=== PATIENT | male | born 1975 | race Caucasian/White ===

== ENCOUNTER 2018-11-12 22:35 | Inpatient (IN) | payer BC ==
[2018-11-12] MEDS ORDERED: ALBUTEROL NEBULIZED 2.5 MG/3 ML INHALATION PRN (23:12)
[2018-11-12] MEDS ORDERED: PNEUMONIA PROTOCOL UTILIZED 1 EACH MISC PO PRN (23:12)
[2018-11-12] MEDS ORDERED: HYDROcodone/APAP 5-325MG 1 EACH TAB PO PRN (23:14)
--- NOTE | 2018-11-12 23:24 | ED ---
SOB HPI - General Chief Complaint: Shortness of Breath Stated Complaint: MO Time Seen by Provider: 11/12/18 22:58 Source: patient, EMS Mode of arrival: EMS Limitations: no limitations - History of Present Illness Initial Comments: This patient is a 43-year-old man who is transferred here from [facility] to be admitted for pneumonia. The patient states that his symptoms started on Monday with cough that is productive of some yellowish sputum. He over the past 2 days has had some intermittent fever. Today he states he was feeling much worse. He is having bilateral rib pains with the cough. He states that he is feeling short of breath. He went to the other hospitals walk-in clinic and was found to have pulse ox readings from 85-88 on room air. For that reason they transferred him here. The patient states that he is not feeling short of breath with the nasal cannula oxygen. MD Complaint: shortness of breath, cough, chest pain Onset/Timin -: days(s) Severity: moderate Quality: aching Consistency: constant Improves With: oxygen Worsens With: coughing Associated Symptoms: fever, cough, sputum production - Related Data Home Oxygen Therapy: No Home Medications Medication Instructions Recorded Confirmed Haloperidol [Haldol] 0.5 mg PO BID 11/11/14 11/11/14 Loratadine [Alavert] 10 mg PO HS PRN 11/11/14 11/11/14 Magnesium 200 mg PO TID 11/11/14 11/11/14 Multivitamin [Men's Multi-Vitamin] 1 each PO HS 11/11/14 11/11/14 [place]-3 Fatty Acids/Fish Oil [Fish 1 cap PO BID 11/11/14 11/11/14 Oil 1,000 mg Softgel] Venlafaxine HCl [Effexor] 75 mg PO BID@1200,2200 11/11/14 11/11/14 Venlafaxine HCl [Effexor] 150 mg PO DAILY@0900 11/11/14 11/11/14 traZODone HCL [Desyrel] 50 mg PO HS 11/11/14 11/11/14 Divalproex [Depakote] 500 mg PO TID 11/12/14 11/12/14 Previous Rx's Medication Instructions Recorded Amoxic-Pot Clav 875-125Mg 1 each PO Q12HR #14 tablet 11/13/14 [Augmentin Xr 875125] HYDROcodone/APAP 5-325MG [Lyles 5] 1 - 2 each PO Q6HR PRN #30 tab 11/13/14 Psyllium Husk (with Sugar) 368 gm PO DAILY powder 11/13/14 [Metamucil Powder] Allergies Allergy/AdvReac Type Severity Reaction Status Date / Time clarithromycin [From Biaxin] Allergy Unknown Verified 11/12/18 22:58 Review of Systems ROS Statement: Those systems with pertinent positive or pertinent negative responses have been documented in the HPI. ROS Other: All systems not noted in ROS Statement are negative. Constitutional: Reports: fever, chills ENT: Reports: congestion Respiratory: Reports: cough, dyspnea, wheezes. Denies: hemoptysis Cardiovascular: Reports: chest pain (Rib pains with cough). Denies: palpitati ons, orthopnea, edema, syncope Gastrointestinal: Denies: abdominal pain, nausea, vomiting, diarrhea Genitourinary: Denies: dysuria, hematuria Musculoskeletal: Denies: back pain Skin: Denies: rash Neurological: Denies: headache, weakness, numbness Past Medical History Past Medical History: No Reported History, Asthma, Diabetes Mellitus, Hyperlipidemia, Hypertension History of Any Multi-Drug Resistant Organisms: None Reported Past Surgical History: Adenoidectomy, Tonsillectomy Additional Past Surgical History / Comment(s): MYRINGOTOMY Past Anesthesia/Blood Transfusion Reactions: No Reported Reaction Past Psychological History: Anxiety, Bipolar, Depression Smoking Status: Current every day smoker Past Alcohol Use History: None Reported Past Drug Use History: None Reported - Past Family History Father Family Medical History: Cancer Mother Family Medical History: Diabetes Mellitus General Exam Limitations: no limitations General appearance: alert, in no apparent distress Head exam: Present: atraumatic, normocephalic Eye exam: Present: normal appearance. Absent: scleral icterus, conjunctival injection Neck exam: Present: normal inspection. Absent: meningismus Respiratory exam: Present: rales (Bilateral), chest wall tenderness. Absent: respiratory distress, wheezes, rhonchi, stridor, accessory muscle use, decreased breath sounds, prolonged expiratory Cardiovascular Exam: Present: regular rate, normal rhythm, normal heart sounds. Absent: systolic murmur, diastolic murmur, rubs, gallop GI/Abdominal exam: Present: soft. Absent: distended, tenderness, guarding, rebound, rigid, mass Extremities exam: Present: normal inspection, normal capillary refill. Absent: pedal edema, calf tenderness Back exam: Present: normal inspection. Absent: CVA tenderness (R), CVA tenderness (L) Neurological exam: Present: alert Skin exam: Present: warm, intact, normal color, diaphoretic. Absent: rash Course Vital Signs 11/12/18 11/12/18 22:36 22:43 Temperature 98.6 F Pulse Rate 78 Respiratory 18 18 Rate Blood Pressure 101/58 O2 Sat by Pulse 95 Oximetry Disposition Clinical Impression: Pneumonia Disposition: ADMITTED IP TO THIS HOSP Condition: Poor Is patient prescribed a controlled substance at d/c from ED?: No Referrals: None,Stated [Primary Care Provider] - 1-2 days
[2018-11-13] MEDS: SODIUM CHLORIDE 0.9% 1,000 ML IV SCH ×3 (00:33→21:00)
[2018-11-13] MEDS: PIPERACILLIN-TAZOBACTAM 3.375 GM in SODIUM CHLORIDE 0.9% 100 ML IVPB SCH ×3 (00:33→17:42)
[2018-11-13 01:41] VITALS: BMI 31.1
[2018-11-13] MEDS: traZODone HCL 50 MG TAB PO SCH ×2 (02:17→21:01)
[2018-11-13] MEDS: VENLAFAXINE HCL 75 MG TAB PO SCH ×4 (02:17→21:33)
[2018-11-13] MEDS: BUDESONIDE 0.5 MG/2 ML NEBU INHALATION SCH ×2 (06:40→19:52)
[2018-11-13] MEDS: IPRATROPIUM-ALBUTEROL 3 ML NEB INHALATION SCH ×4 (06:40→19:52)
[2018-11-13 06:54] LABS: Glucose,Whole Blood 249 mg/dL (75-99)
[2018-11-13] MEDS: ACETAMINOPHEN TAB 325 MG TAB PO PRN (08:34)
[2018-11-13] MEDS: DIVALPROEX 500 MG TABLET.DR PO SCH ×3 (08:35→21:01)
[2018-11-13] MEDS: HALOPERIDOL ORAL SOLN 10 MG/5 ML CUP PO SCH ×2 (08:35→22:09)
[2018-11-13] MEDS: methylPREDNISolone SOD SUCCI 40 MG/ML 1 ML VIAL IV SCH ×2 (08:35→17:41)
[2018-11-13] MEDS: MAGNESIUM OXIDE 400 MG TAB PO SCH ×3 (08:36→21:01)
[2018-11-13] MEDS: OSELTAMIVIR 75 MG CAP PO SCH ×2 (08:36→21:01)
[2018-11-13 11:40] LABS: Glucose,Whole Blood 248 mg/dL (75-99)
[2018-11-13] MEDS ORDERED: VENLAFAXINE HCL 75 MG TAB PO SCH (12:00)
--- NOTE | 2018-11-13 13:41 | HP ---
HISTORY AND PHYSICAL CHIEF COMPLAINT: Difficulty breathing. HISTORY OF PRESENT ILLNESS: This is the first known admission for this 43-year-old white male. He was transferred in from [facility]. He has COPD and was diagnosed as having pneumonitis. He is on numerous medications including Haldol, loratadine, magnesium, venlafaxine, trazodone, and divalproex. He is allergic to BIAXIN. Laboratory studies indicated elevated blood sugar. He is on a mental disability. He smokes a pack of cigarettes a day. Surgically, he has had myringotomy tubes and T and A. PHYSICAL EXAMINATION: Blood pressure 124/77, temperature 98.7, pulse is 110, respirations are 18. In general, he appeared to be in respiratory distress. Skin was dry. Head, ears, eyes, nose, mouth, and throat were normal. Chest demonstrated increased AP diameter. breath sounds with wheezes, rales and rhonchi throughout. Cardiac exam demonstrates sinus tachycardia. Abdomen is soft, nontender. EXTREMITIES: Normal. Neurologically, he is intact. IMPRESSION: 1. Exacerbation of chronic obstructive pulmonary disease. 2. Bronchial pneumonia. PLAN: 1. Bed rest. 2. IV fluids. 3. IV and inhaled steroids. 4. Manage blood sugars. MMODL / IJN: [id number] /
[2018-11-13 16:40] LABS: Glucose,Whole Blood 303 mg/dL (75-99)
[2018-11-13] MEDS: ALPRAZolam 1 MG TAB PO SCH (18:58)
[2018-11-13 20:31] LABS: Glucose,Whole Blood 334 mg/dL (75-99)
[2018-11-13] MEDS ORDERED: traZODone HCL 50 MG TAB PO SCH (21:00)
[2018-11-13] MEDS: NICOTINE 21MG/24HR PATCH TRANSDERM SCH (21:01)
[2018-11-13] MEDS: INSULIN ASPART (NovoLOG) 100 UNIT/ML VIAL SQ SCH (21:01)
[2018-11-13] MEDS: MIRTAZAPINE 15 MG TAB PO SCH (21:01)
[2018-11-13] MEDS ORDERED: LEVOFLOXACIN 750MG-D5W PMX 750 MG in DEXTROSE/WATER 1 150ML.BAG IVPB SCH (23:13)
[2018-11-14] MEDS: methylPREDNISolone SOD SUCCI 40 MG/ML 1 ML VIAL IV SCH ×4 (01:38→23:47)
[2018-11-14] MEDS: PIPERACILLIN-TAZOBACTAM 3.375 GM in SODIUM CHLORIDE 0.9% 100 ML IVPB SCH ×4 (01:40→23:51)
[2018-11-14] MEDS: ACETAMINOPHEN TAB 325 MG TAB PO PRN ×3 (01:47→22:52)
[2018-11-14 02:06] LABS: Glucose,Whole Blood 233 mg/dL (75-99)
[2018-11-14] MEDS: SODIUM CHLORIDE 0.9% 1,000 ML IV SCH ×2 (05:12→14:40)
[2018-11-14 07:05] LABS: Glucose,Whole Blood 304 mg/dL (75-99)
[2018-11-14] MEDS: ALPRAZolam 1 MG TAB PO SCH ×3 (07:43→18:07)
[2018-11-14] MEDS: INSULIN ASPART (NovoLOG) 100 UNIT/ML VIAL SQ SCH ×4 (07:48→22:53)
[2018-11-14] MEDS: NICOTINE 21MG/24HR PATCH TRANSDERM SCH (07:49)
[2018-11-14] MEDS: HALOPERIDOL ORAL SOLN 10 MG/5 ML CUP PO SCH ×2 (07:50→22:53)
[2018-11-14] MEDS: OSELTAMIVIR 75 MG CAP PO SCH ×2 (07:50→22:52)
[2018-11-14] MEDS: VENLAFAXINE HCL 75 MG TAB PO SCH ×3 (07:53→23:47)
[2018-11-14] MEDS: LOSARTAN 25 MG TAB PO SCH (07:53)
[2018-11-14] MEDS: DIVALPROEX 500 MG TABLET.DR PO SCH ×3 (07:53→22:52)
[2018-11-14] MEDS: MAGNESIUM OXIDE 400 MG TAB PO SCH ×3 (07:53→22:52)
[2018-11-14] MEDS: LINAGLIPTIN 5 MG TABLET PO SCH (07:54)
[2018-11-14] MEDS: IPRATROPIUM-ALBUTEROL 3 ML NEB INHALATION SCH ×4 (08:24→21:18)
[2018-11-14] MEDS: BUDESONIDE 0.5 MG/2 ML NEBU INHALATION SCH ×2 (08:24→21:19)
[2018-11-14 12:04] LABS: Glucose,Whole Blood 282 mg/dL (75-99)
--- NOTE | 2018-11-14 14:12 | PN ---
PROGRESS NOTE CHIEF COMPLAINT: Aspiration, COPD and pneumonitis. HISTORY OF PRESENT ILLNESS: This gentleman is improved slightly. He is still very dyspneic. PHYSICAL EXAM: Breath sounds are poor with extensive rales and rhonchi and prolonged expiratory phase with wheezing scattered throughout. Cardiac exam is normal. IMPRESSION: Exacerbation of chronic obstructive pulmonary disease. PLAN: Continue with Pulmonary treatments and monitoring of his blood sugar. MMODL / IJN: [id number] /
[2018-11-14 17:52] LABS: Glucose,Whole Blood 301 mg/dL (75-99)
[2018-11-14 20:53] LABS: Glucose,Whole Blood 308 mg/dL (75-99)
[2018-11-14 21:03] LABS: Hemoglobin A1C 9.4 % (4.0-6.0)
[2018-11-14] MEDS: LEVOFLOXACIN 750 MG TAB PO SCH (22:51)
[2018-11-14] MEDS: MIRTAZAPINE 15 MG TAB PO SCH (22:52)
[2018-11-14] MEDS: traZODone HCL 50 MG TAB PO SCH (22:52)
[2018-11-15] MEDS: SODIUM CHLORIDE 0.9% 1,000 ML IV SCH (05:51)
[2018-11-15 07:12] LABS: Glucose,Whole Blood 269 mg/dL (75-99)
[2018-11-15] MEDS: NICOTINE 21MG/24HR PATCH TRANSDERM SCH (07:33)
[2018-11-15] MEDS: INSULIN ASPART (NovoLOG) 100 UNIT/ML VIAL SQ SCH ×6 (07:33→21:27)
[2018-11-15] MEDS: methylPREDNISolone SOD SUCCI 40 MG/ML 1 ML VIAL IV SCH (07:34)
[2018-11-15] MEDS: ALPRAZolam 1 MG TAB PO SCH ×3 (07:41→17:32)
[2018-11-15] MEDS: PIPERACILLIN-TAZOBACTAM 3.375 GM in SODIUM CHLORIDE 0.9% 100 ML IVPB SCH ×3 (07:42→23:52)
[2018-11-15] MEDS: BUDESONIDE 0.5 MG/2 ML NEBU INHALATION SCH ×2 (07:48→19:48)
[2018-11-15] MEDS: IPRATROPIUM-ALBUTEROL 3 ML NEB INHALATION SCH ×4 (07:48→19:48)
[2018-11-15] MEDS: ACETAMINOPHEN TAB 325 MG TAB PO PRN (07:50)
[2018-11-15] MEDS: DIVALPROEX 500 MG TABLET.DR PO SCH ×3 (10:23→21:33)
[2018-11-15] MEDS: LINAGLIPTIN 5 MG TABLET PO SCH (10:24)
[2018-11-15] MEDS: LOSARTAN 25 MG TAB PO SCH (10:25)
[2018-11-15] MEDS: OSELTAMIVIR 75 MG CAP PO SCH ×2 (10:25→20:30)
[2018-11-15] MEDS: VENLAFAXINE HCL 75 MG TAB PO SCH ×3 (10:27→21:34)
[2018-11-15] MEDS: MAGNESIUM OXIDE 400 MG TAB PO SCH ×3 (10:27→21:34)
[2018-11-15] MEDS: HALOPERIDOL ORAL SOLN 10 MG/5 ML CUP PO SCH ×4 (10:28→21:35)
[2018-11-15 12:11] LABS: Glucose,Whole Blood 321 mg/dL (75-99)
[2018-11-15 17:17] LABS: Glucose,Whole Blood 280 mg/dL (75-99)
[2018-11-15] MEDS: metFORMIN 500 MG TAB PO SCH (17:32)
[2018-11-15] MEDS: traZODone HCL 50 MG TAB PO SCH (20:30)
[2018-11-15] MEDS: MIRTAZAPINE 15 MG TAB PO SCH (20:30)
[2018-11-15] MEDS: LEVOFLOXACIN 750 MG TAB PO SCH (20:30)
[2018-11-15 20:44] LABS: Glucose,Whole Blood 261 mg/dL (75-99)
[2018-11-15] MEDS ORDERED: INSULIN DETEMIR (LEVEMIR) 100 UNIT/ML SYR SQ SCH (21:00)
[2018-11-15] MEDS ORDERED: ALPRAZolam 1 MG TAB PO SCH (21:00)
[2018-11-16 03:08] LABS: Glucose,Whole Blood 182 mg/dL (75-99)
[2018-11-16] MEDS: ACETAMINOPHEN TAB 325 MG TAB PO PRN (03:30)
[2018-11-16 05:46] LABS: Glucose,Whole Blood 171 mg/dL (75-99)
[2018-11-16 06:08] VITALS: RESP 18
[2018-11-16 07:10] LABS: Glucose,Whole Blood 137 mg/dL (75-99)
[2018-11-16] MEDS: BUDESONIDE 0.5 MG/2 ML NEBU INHALATION SCH (07:56)
[2018-11-16] MEDS: IPRATROPIUM-ALBUTEROL 3 ML NEB INHALATION SCH ×3 (07:56→16:46)
[2018-11-16] MEDS: INSULIN ASPART (NovoLOG) 100 UNIT/ML VIAL SQ SCH ×6 (08:02→17:37)
[2018-11-16] MEDS: NICOTINE 21MG/24HR PATCH TRANSDERM SCH (08:02)
[2018-11-16] MEDS: PIPERACILLIN-TAZOBACTAM 3.375 GM in SODIUM CHLORIDE 0.9% 100 ML IVPB SCH ×2 (08:02→16:23)
[2018-11-16] MEDS: metFORMIN 500 MG TAB PO SCH ×2 (08:03→17:34)
[2018-11-16] MEDS: OSELTAMIVIR 75 MG CAP PO SCH (08:03)
[2018-11-16] MEDS: MAGNESIUM OXIDE 400 MG TAB PO SCH ×2 (08:03→17:37)
[2018-11-16] MEDS: ALPRAZolam 1 MG TAB PO SCH ×3 (08:03→17:34)
[2018-11-16] MEDS: DIVALPROEX 500 MG TABLET.DR PO SCH ×2 (08:03→17:34)
[2018-11-16] MEDS: LOSARTAN 25 MG TAB PO SCH (08:04)
[2018-11-16] MEDS: LINAGLIPTIN 5 MG TABLET PO SCH (08:04)
[2018-11-16] MEDS: VENLAFAXINE HCL 75 MG TAB PO SCH ×2 (08:06→12:55)
[2018-11-16] MEDS: HALOPERIDOL ORAL SOLN 10 MG/5 ML CUP PO SCH ×3 (08:06→17:37)
[2018-11-16 11:23] LABS: Glucose,Whole Blood 134 mg/dL (75-99)
[2018-11-16 13:20] VITALS: BP 132/69; TEMP 97.6
[2018-11-16 16:49] VITALS: PULSE 92
[2018-11-16 17:26] LABS: Glucose,Whole Blood 133 mg/dL (75-99)
--- NOTE | 2018-11-16 21:53 | PN ---
PROGRESS NOTE DATE OF SERVICE: 11/15/2018 CHIEF COMPLAINT: COPD, pneumonitis, elevated blood sugars. HISTORY OF PRESENT ILLNESS: This gentleman is still very congested and short of breath. He has not improved at all since of the admission. Blood sugars have been elevated as well. PHYSICAL EXAM: He has extensive rales and rhonchi bilaterally with wheezing on inspiration and expiration. Breath sounds are extremely poor. Cardiac exam demonstrates tachycardia. He still has dependent edema. IMPRESSION: Pneumonitis with chronic obstructive pulmonary disease and uncontrolled diabetes. PLAN: 1. Alter insulin management. 2. Continue with updrafts, steroids and antibiotics. MMODL / IJN: [id number] /
--- NOTE | 2018-11-17 07:45 | DS ---
DISCHARGE SUMMARY CHIEF COMPLAINT: Pneumonitis and influenza. HISTORY OF PRESENT ILLNESS AND PHYSICAL EXAM: Details of this man's history and physical can be found in the initial workup. LABORATORY STUDIES: While he was in the hospital, he had laboratory studies, details of which can be found in the laboratory section of chart. COURSE IN HOSPITAL: After admission, he was placed on bedrest, started on intravenous fluids, IV antibiotics and inhaled and IV steroids. He slowly improved. Blood sugars were somewhat erratic and these were gradually brought under better control. He was doing well and it was felt that he could be discharged safely. He will go home on his usual activity, diet, medications, and he will be seen in the office for followup for his pulmonary problem, pneumonitis, and his diabetes. FINAL DIAGNOSES: 1. Bronchial pneumonia. 2. Influenza. 3. Chronic obstructive pulmonary disease. 4. Diabetes mellitus. OPERATIONS: None. CONSULTATION: None. He is improved. MMODL / RAYN: [id number] /
== END 2018-11-16 18:24 | disposition home or self-care (01) | DRG 194 ==
LOC: EC 22:35 → 4MS4W 23:12
PROVIDERS: ADMIT Family Medicine; ATTEND Family Medicine
DX: J11.00 Influenza due to unidentified influenza virus with unspecified type of pneumonia (principal); J44.1 Chronic obstructive pulmonary disease with (acute) exacerbation; E11.65 Type 2 diabetes mellitus with hyperglycemia; F17.210 Nicotine dependence, cigarettes, uncomplicated; F31.9 Bipolar disorder, unspecified; Z88.1 Allergy status to other antibiotic agents; Z79.899 Other long term (current) drug therapy
CPT/HCPCS: 36415; 83036; 87040; 87070; 87205; 87502; 94640; 94760; 96365; 99285

== ENCOUNTER → 2024-04-30 | Outpatient (CLI) | payer OTHER, BC ==
--- NOTE | 2024-04-30 17:03 | XR ---
EXAMINATION TYPE: XR elbow complete LT DATE OF EXAM: 04/30/2024 COMPARISON: None HISTORY: Pain TECHNIQUE: 3 view left elbow FINDINGS: Radius aligns normally with the humerus. No acute fracture or dislocation evident. No eleva tion of the anterior horn posterior fat pad is evident. Follow-up exams can be performed 7-10 days from acute trauma for continued pain. IMPRESSION: 1. No acute osseous abnormality left elbow. [facility], , 04/30/2024 5:00 PM
== END | disposition home or self-care (01) ==
LOC: RADXRYALE 16:24
PROVIDERS: ATTEND Family Medicine
DX: M25.522 Pain in left elbow (principal)